=== PATIENT | female | born 2000 | race Native Hawaiian/Other Pacific Islander ===

== ENCOUNTER 2021-05-20 17:25 | Emergency (ER) | payer BC ==
[~2021-05-20] VITALS: Ht 157.5 cm; Wt 59.0 kg
[2021-05-20 17:49] VITALS: BP 99/71
== END 2021-05-20 18:59 | disposition home or self-care (01) ==
LOC: EMS 17:25
DX: R00.2 Palpitations (principal); F41.9 Anxiety disorder, unspecified; F12.90 Cannabis use, unspecified, uncomplicated
CPT/HCPCS: 93005; 99283